=== PATIENT | male | born 1995 | race Caucasian/White ===

== ENCOUNTER 2017-08-15 12:45 | Emergency (ER) | payer OTHER ==
[2017-08-15 13:13] VITALS: RESP 16
[2017-08-15] MEDS ORDERED: NS 1,000 ML IV ONE (14:14)
[2017-08-15] MEDS ORDERED: METOCLOPRAMIDE 10 MG/2 ML VIAL IVP ONE (14:14)
[2017-08-15] MEDS ORDERED: METOCLOPRAMIDE 10 MG/2 ML VIAL ONE (14:15)
--- NOTE | 2017-08-15 14:23 | EDPHY ---
H & P Stated Complaint: n/v abd pain x today seen at [facility], sent with IV inplace Time Seen by Provider: 08/15/17 14:12 HPI/ROS: CHIEF COMPLAINT: Intractable vomiting HISTORY OF PRESENT ILLNESS: 22-year-old male [employer] student, daily marijuana use, arrives via private vehicle complaining of nausea, intractable vomiting since this morning. Was seen at [facility] , given IV hydration but continued to vomit after IV Benadryl and Zofran referred to the ER for evaluation. No abdominal pain. At the time I evaluate him he has no complaints of nausea but states that his episodes of emesis and nausea tend to occur "violently". Bowel movements normal. No hematemesis. No melena hematochezia. No fever or chills. No abdominal or genital trauma. No straddle injury. No complaints. REVIEW OF SYSTEMS: A ten point review of systems was performed and is negative with the exception of the items mentioned in the HPI PAST MEDICAL & SURGICAL HISTORY: No history of abdominal surgeries SOCIAL HISTORY:daily marijuana PHYSICAL EXAM (Prior to examination, patient consented to physical exam, hands were washed and my usual and customary physical exam procedures followed) 1) GENERAL: Well-developed, well-nourished, alert and oriented. Appears to be in no acute distress. 2) HEAD: Normocephalic, atraumatic 3) HEENT: Pupils equal, round, reactive to light bilaterally. Sclera anicteric. Nasopharynx, oropharynx, clear, no lesions. Dry mucous membranes 4) NECK: Full range of motion, no meningeal signs. 5) LUNGS: Clear auscultation bilaterally, no wheezes, no rhonchi, no retractions. 6) HEART: Regular rate and rhythm, no murmur, no heave, no gallop. 7) ABDOMEN: No guarding, no rebound, no focal tenderness, negative McBurney's, negative Duenas's, negative Rovsing's, negative peritoneal sign, I am unable to elicit any abdominal pain on exam 8) MUSCULOSKELETAL: Moving all extremities, no focal areas of tenderness, no obvious trauma. No peripheral edema or discoloration. 9) BACK: No CVA tenderness. 10) SKIN: No rash, no petechiae. 11) Psychiatric: Patient is oriented X 3, there is no agitation. DIFFERENTIAL DIAGNOSIS: My differential diagnosis includes, but is not limited to, cannabis hyperemesis syndrome, cyclic vomiting syndrome, acute appendicitis , acute cholecystitis, bowel obstruction, acute pancreatitis, gastritis and urinary tract infection. The patient understands that this diagnosis is provisional and can never be 100% accurate. This is a partial list of diagnoses considered. These considerations are based on history, physical exam, past history and reassessment. - Personal History Current Tetanus Diphtheria and Acellular Pertussis (TDAP): Yes - Medical/Surgical History Hx Asthma: No Hx Chronic Respiratory Disease: No Hx Diabetes: No Hx Cardiac Disease: No Hx Renal Disease: No Hx Cirrhosis: No Hx Alcoholism: No Hx HIV/AIDS: No Hx Splenectomy or Spleen Trauma: No Other PMH: none - Social History Smoking Status: Never smoked Constitutional: Initial Vital Signs Temperature (C) 36.5 C 08/15/17 13:10 Heart Rate 58 L 08/15/17 13:10 Respiratory Rate 16 08/15/17 13:10 Blood Pressure 109/61 08/15/17 13:10 O2 Sat (%) 96 08/15/17 13:10 O2 Delivery Mode Room Air Allergies/Adverse Reactions: No Known Allergies Allergy (Unverified 08/15/17 13:09) Home Medications: Medication Instructions Recorded Ondansetron Odt [Zofran Odt] 4 mg PO Q4PRN PRN #10 tab 08/15/17 Medical Decision Making ED Course/Re-evaluation: 2:50 p.m.: Patient I discussed possibility of cannabis hyperemesis syndrome, possibility of cyclic vomiting syndrome. At this time in the absence of abdominal pain and no abdominal tenderness, I think that acute surgical abdominal pathology is less than likely, doubt acute appendicitis. Will provide IV hydration, obtain diagnostic studies, provide IV Ativan, Reglan and re-evaluated. At this time he is calm. 3:29 p.m.: Re-evaluation, sitting upright, tolerating oral intake, re- evaluated abdomen which is soft no guarding or rebound no McBurney's point pain. Doubt acute surgical abdominal pathology. We discussed possibility of cannabis hyperemesis syndrome, possibility of cyclic vomiting syndrome. At this time I do not think that diagnostic studies are indicated. I recommended moderation with marijuana use. Plan will be discharge. He is comfortable with this plan. Usual customary discharge precautions and instructions provided.Care of patient under supervision of secondary supervising physician Dr Yusuf . - Data Points Laboratory Results: Laboratory Results 08/15/17 14:29 08/15/17 14:29 08/15/17 08/15/17 14:29 14:29 WBC 12.26 10^3/uL H 10^3/uL (3.80-9.50) RBC 5.56 10^6/uL 10^6/uL (4.40-6.38) Hgb 17.5 g/dL g/dL (13.7-17.5) Hct 48.5 % % (40.0-51.0) MCV 87.2 fL fL (81.5-99.8) MCH 31.5 pg pg (27.9-34.1) MCHC 36.1 g/dL g/dL (32.4-36.7) RDW 12.4 % % (11.5-15.2) Plt Count 236 10^3/uL 10^3/uL (150-400) MPV 9.5 fL fL (8.7-11.7) Neut % (Auto) 84.4 % H % (39.3-74.2) Lymph % (Auto) 11.3 % L % (15.0-45.0) [place] % (Auto) 3.4 % L % (4.5-13.0) Eos % (Auto) 0.2 % L % (0.6-7.6) Baso % (Auto) 0.3 % % (0.3-1.7) Nucleat RBC Rel Count 0.0 % % (0.0-0.2) Absolute Neuts (auto) 10.34 10^3/uL H 10^3/uL (1.70-6.50) Absolute Lymphs (auto) 1.38 10^3/uL 10^3/uL (1.00-3.00) Absolute Monos (auto) 0.42 10^3/uL 10^3/uL (0.30-0.80) Absolute Eos (auto) 0.03 10^3/uL 10^3/uL (0.03-0.40) Absolute Basos (auto) 0.04 10^3/uL 10^3/uL (0.02-0.10) Absolute Nucleated RBC 0.00 10^3/uL 10^3/uL (0-0.01) Immature Gran % 0.4 % % (0.0-1.1) Immature Gran # 0.05 10^3/uL 10^3/uL (0.00-0.10) Sodium 146 mEq/L H mEq/L (134-144) Potassium 3.8 mEq/L mEq/L (3.5-5.2) Chloride 108 mEq/L mEq/L (97-110) Carbon Dioxide 22 mEq/l mEq/l (22-31) Anion Gap 16 mEq/L mEq/L (8-16) BUN 13 mg/dL mg/dL (7-23) Creatinine 0.8 mg/dL mg/dL (0.7-1.3) Estimated GFR > 60 Glucose 88 mg/dL mg/dL (70-100) Calcium 9.8 mg/dL mg/dL (8.5-10.4) Total Bilirubin 0.8 mg/dL mg/dL (0.1-1.4) Conjugated Bilirubin 0.2 mg/dL mg/dL (0.0-0.5) Unconjugated Bilirubin 0.6 mg/dL mg/dL (0.0-1.1) AST 12 IU/L L IU/L (17-59) ALT 26 IU/L IU/L (21-72) Alkaline Phosphatase 58 IU/L IU/L (38-126) Total Protein 7.8 g/dL g/dL (6.3-8.2) Albumin 4.4 g/dL g/dL (3.5-5.0) Lipase 56 IU/L IU/L (23-300) Medications Given: Discontinued Medications Sodium Chloride (Ns) 1,000 mls @ 0 mls/hr IV ONCE ONE PRN Reason: Wide Open Stop: 08/15/17 14:15 Last Admin: 08/15/17 14:37 Dose: 1,000 mls Lorazepam (Ativan Injection) 1 mg IVP EDNOW ONE Stop: 08/15/17 14:25 Last Admin: 08/15/17 14:43 Dose: 1 mg Metoclopramide HCl (Reglan Injection) 10 mg IVP EDNOW ONE Stop: 08/15/17 14:15 Last Admin: 08/15/17 14:37 Dose: 10 mg Departure - Departure Disposition: Home, Routine, Self-Care Clinical Impression: Volume depletion Nausea & vomiting Qualifiers: Vomiting type: unspecified Vomiting Intractability: non-intractable Qualified Code(s): R11.2 - Nausea with vomiting, unspecified Condition: Good Instructions: Acute Nausea and Vomiting (ED) Additional Instructions: Seek immediate medical attention if you develop new or worsening symptoms, if you develop fevers, chills, inability to tolerate oral intake or any other symptoms that concerns you. Please exercise moderation with marijuana use Referrals: Sami Platt MD [Medical Doctor] - 2-3 days, call for appt. (Dr. Platt is a licensed nurse practitioner) Prescriptions: Ondansetron Odt [Zofran Odt] 4 mg PO Q4PRN PRN #10 tab PRN Reason: Nausea
[2017-08-15] MEDS ORDERED: LORazepam 2 MG/ML INJ IVP ONE (14:24)
[2017-08-15 14:49] LABS: % IMMATURE GRANULYOCYTES 0.4 % (0.0-1.1); ABSOLUTE IMMATURE GRANULOCYTES 0.05 10^3/uL (0.00-0.10); ADD DIFF? NO; ADD MORPH? NO; ADD SCAN? NO; ATYPICAL LYMPHOCYTE FLAG 0 (0-99); FRAGMENT RBC FLAG 0 (0-99); HEMATOCRIT 48.5 % (40.0-51.0); HEMOGLOBIN 17.5 g/dL (13.7-17.5); LEFT SHIFT FLG 0 (0-99); LIPEMIA HEMOLYSIS FLAG 90 (0-99); MEAN CELL HEMOGLOBIN 31.5 pg (27.9-34.1); MEAN CELL HEMOGLOBIN CONCENTR. 36.1 g/dL (32.4-36.7); MEAN CELL VOLUME 87.2 fL (81.5-99.8); MEAN PLATELET VOLUME 9.5 fL (8.7-11.7); PLATELET CLUMPS FLAG 0 (0-99); PLATELET COUNT 236 10^3/uL (150-400); RED BLOOD CELL COUNT 5.56 10^6/uL (4.40-6.38); RED CELL DISTRIBUTION WIDTH 12.4 % (11.5-15.2)
[2017-08-15 15:03] LABS: ALANINE AMINOTRANSFERASE 26 IU/L (21-72); ALBUMIN 4.4 g/dL (3.5-5.0); ALKALINE PHOSPHATASE 58 IU/L (38-126); ANION GAP 16 mEq/L (8-16); ASPARTATE AMINOTRANSFERASE 12 IU/L (17-59); BILIRUBIN,TOTAL 0.8 mg/dL (0.1-1.4); BILIRUBIN-CONJUGATED 0.2 mg/dL (0.0-0.5); BILIRUBIN-UNCONJUGATED 0.6 mg/dL (0.0-1.1); CALCIUM 9.8 mg/dL (8.5-10.4); CARBON DIOXIDE 22 mEq/l (22-31); CHLORIDE 108 mEq/L (97-110); CREATININE 0.8 mg/dL (0.7-1.3); GLOMERULAR FILTRATION RATE > 60; GLUCOSE 88 mg/dL (70-100); POTASSIUM 3.8 mEq/L (3.5-5.2); SODIUM 146 mEq/L (134-144); TOTAL PROTEIN 7.8 g/dL (6.3-8.2)
[2017-08-15 15:45] VITALS: BP 111/78; PULSE 65; TEMP 98.4; O2SAT 97
== END 2017-08-15 15:45 | disposition home or self-care (01) ==
PROC: 3E0337Z Introduction of Electrolytic and Water Balance Substance into Peripheral Vein, Percutaneous Approach (ICD-10-PCS; principal; 2017-08-15)
DX: E86.9 Volume depletion, unspecified (principal)
CPT/HCPCS: 96374; J2060; J2765